=== PATIENT | female | born 1950 | race Caucasian/White ===

== ENCOUNTER → 2016-11-30 14:51 | Outpatient (CLI) | payer BC, MEDICARE | END | disposition home or self-care (01) | LOC: D.MAMMO 11-29 16:15 | DX: Z12.31 Encounter for screening mammogram for malignant neoplasm of breast (principal) ==

== ENCOUNTER 2017-08-13 12:19 | Inpatient (IN) | payer BC, MEDICARE ==
[~2017-08-13] VITALS: Ht 160 cm; Wt 83.2 kg
[2017-08-13 13:33] LABS: BASOPHILS 0.2 % (0-2); EOSINOPHILS 0 % (0-7); HEMATOCRIT 39.9 % (36.0-48.0); HEMOGLOBIN 13.2 g/dL (12-16); IMMATURE GRANULOCYTES 0.2 % (0-5); LYMPHOCYTES 6.6 % (15-50); MCH 29.7 pg (26.0-34.0); MCHC 33.1 g/dL (31.0-37.0); MCV 89.9 fL (80.0-100.0); MEAN PLATELET VOLUME 9.7 fL (7.4-10.4); MONOCYTES 5.3 % (2-11); NEUTROPHILS 87.7 % (40-80); PLATELET COUNT 256 10x3/uL (130-400); RBC 4.44 10x6/uL (4.00-5.40); RDW 14.1 % (11.5-14.5); WBC 9.7 10x3/uL (4.8-10.8)
[2017-08-13 13:47] LABS: ALBUMIN 3.5 g/dL (3.4-5.0); ALKALINE PHOSPHATASE 127 U/L (46-116); ALT (SGPT) 18 U/L (10-68); CALC OSMOLALITY 262 mosm/kg (275-300); CALCIUM 9.4 mg/dL (8.5-10.1); CARBON DIOXIDE 29.2 mmol/L (21.0-32.0); CHLORIDE - SERUM 93 mmol/L (98-107); CREATININE - SERUM 0.6 mg/dL (0.6-1.3); GLUCOSE 138 mg/dL (74-106); POTASSIUM - SERUM 4.4 mmol/L (3.5-5.1); PROTEIN - SERUM 7.3 g/dL (6.4-8.2); SODIUM 130 mmol/L (136-145); UREA NITROGEN 13 mg/dL (7-18); eGFR NON AFRICAN AMERICAN > 90 mL/min (90-120)
[2017-08-13 13:57] LABS: CREATINE KINASE 140 UL (21-215); PRO BNP 698 pg/mL (0-125); TROPONIN-I < 0.017 ng/mL (0.000-0.060)
--- NOTE | 2017-08-13 16:00 | NUR ---
PT TO ROOM 2225 FROM ER VIA STRETCHER.ASSESSMENT PER FLOW SHEET.PT ASSISTED TO BSC AND SHE BECAME VERY SHORT OF BREATH.02 SATS 96-99% ON BIPAP 45% 02. ORIENTATION TO ROOM.FAMILY AT BEDSIDE.CALL LIGHT IN REACH.
[2017-08-13 16:19] VITALS: BP 111/42; Ht 160 cm; Wt 83.2 kg
--- NOTE | 2017-08-13 18:33 | NUR ---
REMAINS WITHOUT NEEDS.FEELING A LITTLE BETTER.SON TO BRING LIST OF MEDS IN AM.PT UNABLE TO ANSWER DOSES AND FREQUENCY.CONT PLAN OF CARE
--- NOTE | 2017-08-13 19:00 | NUR ---
REPORT RECEIVED AND CARE OF PT ASSUMED. PT LYING IN SEMI YOUNG'S POSITION WITH EYES CLOSED. BIPAP IN USE AT 30% AND PT WITH UNLABORED BREATHING. WILL MONITOR CLOSELY FOR NEEDS.
[2017-08-13 20:00] VITALS: BP 121/62
--- NOTE | 2017-08-13 20:56 | NUR ---
HS MEDICATIONS GIVEN. BED ALARM ACTIVATED FOR SAFETY.
--- NOTE | 2017-08-13 22:38 | NUR ---
PT UP TO RESTROOM WITH METER CHANGES RECORDS CLERK ASSIST. POSITIONED BACK IN BED FOR COMFORT.
[2017-08-14] VITALS: BP 125/59
[2017-08-14] MEDS ORDERED: OMEPRAZOLE20 M1 PO (05:54)
[2017-08-14] MEDS ORDERED: COMBIVENT RESPIM4 GM INH (05:55)
[2017-08-14] MEDS ORDERED: BREO ELLIPTA 11 EACH INH (05:55)
[2017-08-14] MEDS ORDERED: CELEXA40 MG PO (05:55)
[2017-08-14] MEDS ORDERED: IPRAT-ALBUT 0.5-3 ML UPD (05:56)
[2017-08-14] MEDS ORDERED: TENORMIN25 MG PO (05:56)
[2017-08-14] MEDS ORDERED: ZOCOR40 MG PO (05:57)
[2017-08-14 06:29] VITALS: BP 134/59
--- NOTE | 2017-08-14 07:48 | NUR ---
AWAKE AND ALERT. ORIENTED X3. NO C/O AT THIS TIME. UP TO BSC WITH SBA. LUNGS HAVE INSPIRATORY WHEEZES THROUGHOUT LUNGS YEAGER. OCCASSIONAL DRY COUGH NOTED. SKIN IS INTACT WITHOUT REDNESS. SL TO RIGHT HAND PATENT WITHOUT REDNESS AT INSERTION SITE. VOIDED CLEAR YELLOW URINE WITHOUT DIFFICULTY. SKIN CARE PER SELF. DENIES NEEDS.
[2017-08-14 08:37] VITALS: BP 113/56
--- NOTE | 2017-08-14 10:55 | NUR ---
UP TO BR WITH FAMILY'S ASSISTANCE. O2 SAT 87% ON RA AFTERWARDS. O2 REPLACED AT 2L NC SATS UP TO 92%.
[2017-08-14 12:35] VITALS: BP 92/56
[2017-08-14 15:34] VITALS: BP 113/46
--- NOTE | 2017-08-14 16:30 | NUR ---
IV TO RIGHT WRIST REDDENED. RESITED TO LEFT FOREARM AFTER ONE ATTEMPT WITH 20G. OLD IV D/C WITH CATHETER INTACT.
--- NOTE | 2017-08-14 19:00 | NUR ---
REPORT RECEIVED AND CARE OF PT ASSUMED. PT LYING IN SEMI YOUNG'S POSITION WATCHING TV. IV IN LEFT FA SALINE LOCKED. TELEMETRY IN PLACE AND READING [address] AT THIS ASSESSMENT. EXPIRATORY WHEEZES AUSCULTATED IN ALL LUNG YEAGER. WILL MONITOR FOR NEEDS. CALL LIGHT WITHIN REACH.
[2017-08-14 20:00] VITALS: BP 98/45
--- NOTE | 2017-08-14 20:37 | NUR ---
HS MEDICATIONS GIVEN. PT DECLINES SHACK. WILL CONTINUE TO MONITOR FOR NEEDS.
[2017-08-15] VITALS: BP 109/50
[2017-08-15 04:00] VITALS: BP 154/67
[2017-08-15 05:16] LABS: BASOPHILS 0 % (0-2); EOSINOPHILS 0 % (0-7); HEMOGLOBIN 12.5 g/dL (12-16); IMMATURE GRANULOCYTES 0.2 % (0-5); LYMPHOCYTES 4.4 % (15-50); MCH 28.9 pg (26.0-34.0); MCHC 32.1 g/dL (31.0-37.0); MCV 90.3 fL (80.0-100.0); MEAN PLATELET VOLUME 10.1 fL (7.4-10.4); MONOCYTES 2.5 % (2-11); NEUTROPHILS 92.9 % (40-80); PLATELET COUNT 274 10x3/uL (130-400); RBC 4.32 10x6/uL (4.00-5.40); RDW 14.2 % (11.5-14.5)
[2017-08-15 05:49] LABS: ALBUMIN 3.3 g/dL (3.4-5.0); BILIRUBIN - TOTAL 0.42 mg/dL (0.2-1.3); CALCIUM 9.1 mg/dL (8.5-10.1); PROTEIN - SERUM 6.5 g/dL (6.4-8.2)
[2017-08-15 05:53] LABS: ANION GAP 8.7 mmol/L (8-16); CARBON DIOXIDE 36.9 mmol/L (21.0-32.0); CREATININE - SERUM 0.9 mg/dL (0.6-1.3); POTASSIUM - SERUM 3.6 mmol/L (3.5-5.1)
--- NOTE | 2017-08-15 07:44 | NUR ---
REC'D SITTING UP IN BED. ALERT AND ORIENTED X4. DENIED PAIN AT THIS TIME. DENIED NEEDS AT THIS TIME. NO DISTRESS NOTED. INSTRUCTED TO CALL IF NEEDED ANYTHING, VERBALIZED UNDERSTANDING. IS LEAVING TO XRAY. BED LOW, LOCKED, CALL LIGHT IN REACH. WILL CONT TO MONITOR.
[2017-08-15 09:26] VITALS: BP 110/51
--- NOTE | 2017-08-15 11:02 | NUR ---
RESTING QUIELTY IN BED. RESPIRATORY THERAPIST AT BEDSIDE. DENIES ANY NEEDS AT THIS TIME.
[2017-08-15 13:11] VITALS: BP 103/58
[2017-08-15 16:54] VITALS: BP 110/56
--- NOTE | 2017-08-15 19:15 | NUR ---
RECEIVED REPORT FROM DAYSDEFT NURSE.
[2017-08-15 20:00] VITALS: BP 95/59
--- NOTE | 2017-08-15 21:58 | NUR ---
SIT UP IN BED AND WATCH TV.
--- NOTE | 2017-08-16 01:05 | NUR ---
REST IN BED, EYE CLOSE, CALL LIGHT IN REACH.
--- NOTE | 2017-08-16 03:27 | NUR ---
ASSESSED, PT IS ASLEEP WITH O2 AT 2 LITERS AND CPAP OFF. EASY RESPIRATIONS AND NO DISTRESS NOTED. THE BED IS LOW, RAILS UP X'S 2 WITH THE CALL LIGHT AT HAND.
[2017-08-16 04:00] VITALS: BP 130/76
--- NOTE | 2017-08-16 05:30 | NUR ---
MORNING MED GIVEN ORDERED.
[2017-08-16] MEDS ORDERED: BROVANA15 MCG/2 M INH (06:50)
[2017-08-16] MEDS ORDERED: NICODERM C1 PATCH .1 TRANSDERM (06:50)
[2017-08-16] MEDS ORDERED: LEVAQUIN750 MG PO (06:53)
[2017-08-16] MEDS ORDERED: PREDNISONE10 MG (06:53)
[2017-08-16] MEDS ORDERED: MUCINEX1200 MG/BO PO (06:54)
--- NOTE | 2017-08-16 07:15 | NUR ---
REPORT RECEIVED FROM COUNTER ROLLER NURSE. CALL LIGHT IN REACH.
--- NOTE | 2017-08-16 08:34 | NUR ---
ASSESSMENT COMPLETED. AM MEDS ADMINISTERED. IV DC'D WITH TIP INTACT. WAITING ON DC PAPERWORK. CALL LIGHT IN REACH. WILL CONTINUE WITH PLAN OF CARE.
--- NOTE | 2017-08-16 09:20 | NUR ---
RXs CALLED IN TO [facility] IN [place] PER PATIENT REQUEST. DC INSTRUCTIONS EXPLAINED TO PATIENT. VERBALIZED UNDERSTANDING.
[2017-08-16 09:36] VITALS: BP 117/55
--- NOTE | 2017-08-16 10:18 | NUR ---
AWAITING RIDE FROM FAMILY TO DISCHARGE HOME. BALLISTIC EXPERT REMOVED AND RETURNED TO MONITOR STATION.
--- NOTE | 2017-08-16 11:44 | NUR ---
DC'D TO VEHICLE VIA WC WITH SON.
--- NOTE | 2017-08-18 14:06 | CN ---
PATIENT NAME:REYNOLD MEYER MEDICAL RECORD: [id number] : 48 LOCATION:D.MS [facility]25 ADMIT DATE: 08/13/17 ACCOUNT: [id number] CONSULTING PHYSICIAN: OBDULIA THORNE MD REFERRING PHYSICIAN: NASIR SINGH MD DATE OF CONSULTATION: 08/14/2017 CONSULT REQUESTING PHYSICIAN: Dr. Flavio Zhang. REASON FOR CONSULTATION: Acute exacerbation of chronic obstructive pulmonary disease and acute hypoxic respiratory failure. HISTORY OF PRESENT ILLNESS: Ms. Meyer is a 67-year-old female. The patient was sick for the last [address] Hyatt. She was given some Zithromax, but then probably she has some exposure to perfumes and she has shortness of breath. The patient came into the ER. She was put on BiPAP and she is a little bit better now. She is coughing with yellow-colored sputum production. She also hears herself wheezing. REVIEW OF SYSTEMS: As in history of present illness. PAST MEDICAL HISTORY: 1. Asthma. 2. Chronic obstructive pulmonary disease. 3. Hypertension. 4. Congestive heart failure. 5. Atrial fibrillation. PAST SURGICAL HISTORY: Nonsignificant. ALLERGIES: SHE IS ALLERGIC TO PENICILLIN, HYDROCODONE, IODINE. PRESENT MEDICATIONS: On [employer] was reviewed. PERSONAL AND SOCIAL HISTORY: The patient still continues to smoke 2 packs per day. She is a nondrinker. FAMILY HISTORY: Noncontributory. PHYSICAL EXAMINATION: GENERAL: Now, the patient is lying comfortable. She is not in acute distress. She is wearing nasal cannula oxygen. VITAL SIGNS: The blood pressure is 134/59, pulse is 89, respirations 22, temperature 97.9, SpO2 94% on 2 liters nasal cannula. HEENT: Conjunctivae pink, sclerae nonicteric. NECK: Supple, no JVD. CHEST: The chest excursion is minimal on both prolonged expiration with wheezing. HEART: Rhythm regular, normal sound, no murmur. ABDOMEN: Soft. Bowel sounds present. No hepatosplenomegaly. RECTAL: Deferred. EXTREMITIES: No cyanosis, no clubbing, no pedal edema. SKIN: Warm, normal turgor. CENTRAL NERVOUS SYSTEM: The patient is awake and alert. There is no obvious cranial nerve abnormality. The gait was not tested. CONSULT REPORT [id number] REYNOLD MEYER IMAGING: Chest radiograph, there is increased interstitial markings with possible small pleural effusion. OTHER LABORATORY DATA: CBC; the WBC is 9.7, hemoglobin 13.2, hematocrit is 39.9 and the platelet count 256. Chemistry; sodium 130, potassium 4.4, BUN is 13, creatinine 0.6. ABG; the pH is 7.31, pCO2 was 61.3%, the pO2 is 68, bicarbonate is 31.4. IMPRESSION: 1. Acute hypoxic respiratory failure. 2. Chronic hypercarbic respiratory failure with compensated metabolic alkalosis. 3. Acute exacerbation of chronic obstructive pulmonary disease. 4. Congestive heart failure with pulmonary edema, diastolic dysfunction. 5. Asthma. 6. Tobacco dependence syndrome. 7. Tracheobronchitis. RECOMMENDATION: 1. Continue Lasix. 2. Methylprednisolone IV, albuterol/ipratropium nebulizer, Brovana/budesonide nebulizer. Supplemental oxygen. Mucinex DM 2 tablets b.i.d. Start her on Singulair 10 mg daily. Follow up labs and chest radiograph. Check the cardiac echo. Dr. Zhang, thank you for involving me in the care of Ms. Meyer. TRANSINT:[id number] Voice Confirmation ID: [id number] DOCUMENT ID: [id number] OBDULIA THORNE MD at 1406 CC: NYDIA ZHANG DO [id number] DICTATION DATE: 08/14/17 1430 SUPERVISOR PYROTECHNIC LOADING: 08/14/172027 DIS IN 08/16/17 [id number] [place] [address]
== END 2017-08-16 11:44 | disposition home or self-care (01) | DRG 189 ==
LOC: D.ER 12:19 → D.MS 15:06
PROVIDERS: Emergency Medicine; Family Medicine; ADMIT Family Medicine
PROC: 5A09357 Assistance with Respiratory Ventilation, Less than 24 Consecutive Hours, Continuous Positive Airway Pressure (ICD-10-PCS; principal; 2017-08-13)
DX: J96.00 Acute respiratory failure, unspecified whether with hypoxia or hypercapnia (principal); J44.1 Chronic obstructive pulmonary disease with (acute) exacerbation; E87.3 Alkalosis; I50.9 Heart failure, unspecified; J96.12 Chronic respiratory failure with hypercapnia; F17.200 Nicotine dependence, unspecified, uncomplicated

== ENCOUNTER → 2017-12-06 15:39 | Outpatient (CLI) | payer BC, MEDICARE ==
[2017-08-13 16:19] VITALS: BMI 32.4
[~2017-12-06 15:39] MED LIST: BREO ELLIPTA 11 EACH INH; BROVANA15 MCG/2 M INH; CELEXA40 MG PO; COMBIVENT RESPIM4 GM INH; IPRAT-ALBUT 0.5-3 ML UPD; LEVAQUIN750 MG PO; MUCINEX1200 MG/BO PO; NICODERM C1 PATCH .1 TRANSDERM; OMEPRAZOLE20 M1 PO; PREDNISONE10 MG; TENORMIN25 MG PO; ZOCOR40 MG PO
== END | disposition home or self-care (01) ==
LOC: D.MAMMO 08:00
DX: Z12.31 Encounter for screening mammogram for malignant neoplasm of breast (principal)

== ENCOUNTER 2018-08-09 09:10 | Inpatient (IN) | payer BC, MEDICARE ==
[~2018-08-09] VITALS: Ht 160 cm; Wt 83.9 kg
--- NOTE | ~2018-08-09 | MORECARE ---
CASE MANAGEMENT DISCHARGE SUMMARY PATIENT: REYNOLD MEYER UNIT: [id number] ADM DATE: 08/09/18 AGE: 68 : 49 SEX: F ROOM/BED: D.2228 AUTHOR: ALEX,DOC PHYSICIAN: REFERRING PHYSICIAN: NASIR SINGH MD DATE OF SERVICE: 08/10/18 Discharge Plan Patient Name: REYNOLD MEYER Facility: [facility]:[place] : 1950 Planned Disposition: Home Anticipated Discharge Date: Discharge Date: Expected LOS: Initial Reviewer: [email or web address] Initial Review Date: 08/10/2018 Generated: 08/10/18 4:46 pm Comments DCP- Discharge Planning Updated by [email or web address]: Malissa Adams on 08/10/18 2:[address] Patient Name: REYNOLD MEYER Admission Status: ER Accout number: [id number] Admission Date: 08-09-2018 : 1950 Admission Diagnosis: Attending: NASIR SINGH Current LOS: 1 Anticipated DC Date: Planned Disposition: Home Primary Insurance: [employer] Discharge Planning Comments: CM met with patient to discuss discharge planning, her son is present in the room. She states she is independent with all ADL's and IADL's. 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 States she wears oxygen at 2L [place] at and [employer] in [place] is her DME company for that. She declines need for DME or Home health. States her son will take her home on discharge. CM will continue to follow and assist with discharge planning/needs. Advanced Quality Engineer: Malissa Adams DCPIA - Discharge Planning Initial Assessment Updated by [email or web address]: Malissa Adams on 08/10/18 3:33 pm * Is the patient Alert and Oriented? Yes * How many steps to enter\exit or inside your home? 5/0 * PCP Dr. Hyatt's * [facility]acy [facility] [place] ([facility]) * Preadmission Environment Home Alone * ADLs Independent * Equipment Oxygen * List name and contact numbers for known caregivers / representatives who currently or will assist patient after discharge: Kellee Hope - DTR - [phone] Nasir - son - unknown * Verbal permission to speak to the caregivers and representatives has been obtained from the patient. Yes * Community resources currently utilized None * Additional services required to return to the preadmission environment? No * Can the patient safely return to the preadmission environment? Yes * Has this patient been hospitalized within the prior 30 days at any hospital? No Last DP export: 08/10/18 2:37 Patient Name: REYNOLD MEYER Page [id number] at 1546 All edits/amendments must be made on the electronic document DICTATION DATE: 08/10/18 154 QUALITY ASSISTANT: MARIA ELENA 08/10/181545 RPT#: [id number] DC DATE: STATUS: ADM IN [facility] [address] [place] [address] END OF REPORT
--- NOTE | ~2018-08-09 | HP ---
PATIENT: REYNOLD MEYER MEDICAL RECORD: [id number] ACCOUNT: [id number] LOCATION:D.MS [facility]keon2228 : [birth year] ADMISSION DATE: 08/09/18 PCP: NASIR SINGH MD HISTORY AND PHYSICAL EXAMINATION DATE OF ADMISSION: 08/09/2018 CHIEF COMPLAINT: Shortness of breath. HISTORY OF PRESENT ILLNESS: The patient is a 68-year-old female with long-standing history of COPD. She reports that, over the past 2-3 weeks, she has had increasing shortness of breath and difficulty breathing. She has had mild swelling in her lower extremities. She has had minimal sputum production. The patient presented to the Emergency Room for evaluation. PAST MEDICAL HISTORY: Significant in that she has had carpal tunnel syndrome and cubital tunnel syndrome. She has had history of having atrial flutter and atrial fib. She has had ablation in the past. She has had history of asthma and chronic low back pain. She has had a lumbar surgery in 2009. She has had cholecystectomy, hysterectomy in 1973, and bilateral knee replacements. ALLERGIES: CEPHALEXIN, HYDROCODONE, IODINE, MEDROL, MUCINEX, PENICILLIN, AND SULFA. MEDICATIONS: Include albuterol solution 2.5 mg per 3 mL, 3 mL q. 4 hours p.r.n. shortness of breath; aspirin 81 mg once a day; atenolol 25 mg b.i.d.; Breo Ellipta 100 mcg/25 one puff daily; citalopram 40 mg once a day; omeprazole 20 mg once a day; Pulmicort Flexhaler 180 mcg two puffs daily; and simvastatin 40 mg once a day. FAMILY HISTORY: Father had heart disease, at 94; stroke prior to . Mother had dementia. SOCIAL HISTORY: The patient is a one and a half pack per day smoker most of her life, she started at age 15. She denies any ethanol use or abuse. The patient is educated through the 12th grade. 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 She is . REVIEW OF SYSTEMS: GENERAL: She denies any headache, seizure, or syncope. She denies change in visual or auditory acuity. PULMONARY: She has had increasing shortness of breath with wheezing. CARDIOVASCULAR: No chest pain, palpitation, PND, or orthopnea. GASTROINTESTINAL: No chronic nausea, vomiting, melena, or hematochezia. GENITOURINARY: No urgency, frequency, or dysuria. PHYSICAL EXAMINATION: VITAL SIGNS: In the Emergency Room, the patient's temperature was 99, her pulse was 78, her respirations were 18, her blood pressure was 124/73, and pulse ox was 83%. HEENT: Her head is normocephalic. No lesions. Ears; TMs are clear. Eyes; pupils are equal, round, and reactive to light. Her extraocular movements are intact. Her nasal cavity, oral cavity, and oropharynx are clear. NECK: Supple. There is no adenopathy. HEART: No murmurs, gallops, or rubs. HISTORY AND PHYSICAL [id number] REYNOLD MEYER LUNGS: She has diffuse end expiratory wheezes. ABDOMEN: Soft. Bowel sounds positive. No organomegaly. GENITAL AND RECTAL: Deferred. EXTREMITIES: The patient has no pretibial edema. LABORATORY DATA: The patient had ABGs on room air; pH 7.43, pCO2 of 48, pO2 was 45, and bicarb was 30.1. She had sodium that was 129, potassium 4.2, chloride 92, BUN was 8, and creatinine 0.6. Cardiac enzymes were unremarkable. ProBNP was slightly elevated at 728. White count was 17.7, hemoglobin 12.1, hematocrit 36.2, and platelets were 277. Borderline cardiomegaly was present. ASSESSMENT: Possible early congestive heart failure, COPD exacerbation, possible early pneumonia, and history of atrial fibrillation. PLAN: The patient is admitted. Pulmonary consultation will be obtained. The patient will be placed on Levaquin IV, also lactated Ringer's, updraft therapy, and Solu-Medrol. Sputum culture will be obtained. She will be given O2 supplementation as well as having updraft therapy. TRANSINT:[id number] Voice Confirmation ID: [id number] DOCUMENT ID: [id number] NASIR SINGH MD at 0736 CC: [id number] DICTATION DATE: 08/09/18 1800 SAFETY AIDE: 08/09/18 1859 ADM IN [facility] [address] [place] [address]
--- NOTE | ~2018-08-09 | MORECARE ---
CASE MANAGEMENT DISCHARGE SUMMARY PATIENT: REYNOLD MEYER UNIT: [id number] ADM DATE: 08/09/18 AGE: 68 : [birth year] SEX: F ROOM/BED: D.2228 AUTHOR: ALEX,DOC PHYSICIAN: REFERRING PHYSICIAN: NASIR SINGH MD DATE OF SERVICE: 08/14/18 Discharge Plan Patient Name: REYNOLD MEYER Facility: [facility]:[place] : 1950 Planned Disposition: Home Anticipated Discharge Date: Discharge Date: 08/13/2018 Expected LOS: 0 Initial Reviewer: [email or web address] Initial Review Date: 08/10/2018 Generated: 08/14/18 3:46 pm Comments DCP- Discharge Planning Updated by [email or web address]: Lisa Granado on 08/13/18 9:[address] CM RECEIVED ORDER TO CHECK FOR DME NEEDS FOR DISCHARGE PLANNING WITH POSSIBLE D/C TODAY. PATIENT HAS A STATIONARY HOME OXYGEN UNIT FOR NASAL O2 AT NIGHT. NO PORTABILITY. SHE HAS A NEBULIZER WHICH IS "OLD". IT IS OVER 5 YRS OLD. SHE DENIES ANY ADDITIONAL NEEDS SHE IS STILL WORKING. HAD BEEN SEEN BY BUSBOY INITIALLY 08/10/18. CM TO FOLLOW TO ASSIST IS APPROPRIATE. DCP- Discharge Planning Updated by [email or web address]: Malissa Adams on 08/10/18 2:[address] Patient Name: REYNOLD MEYER Admission Status: ER Accout number: [id number] Admission Date: 08-09-2018 : 1950 Admission Diagnosis: Attending: NASIR SINGH Current LOS: 1 Anticipated DC Date: Planned Disposition: Home Primary Insurance: [employer] O Discharge Planning Comments: CM met with patient to discuss discharge planning, her son is present in the room. She states she is independent with all ADL's and IADL's. 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 States she wears oxygen at 2L [place] at and [employer] in [place] is her DME company for that. She declines need for DME or Home health. States her son will take her home on discharge. CM will continue to follow and assist with discharge planning/needs. Auditing Coder: Malissa Adams DCPIA - Discharge Planning Initial Assessment Updated by [email or web address]: Malissa Adams on 08/10/18 3:33 pm * Is the patient Alert and Oriented? Yes * How many steps to enter\\exit or inside your home? 5/0 * PCP Dr. Hyatt's * [facility]acy [facility] [place] ([facility]) * Preadmission Environment Home Alone * ADLs Independent * Equipment Oxygen * List name and contact numbers for known caregivers / representatives who currently or will assist patient after discharge: Kellee Hope - DTR - [phone] Nasir - son - unknown * Verbal permission to speak to the caregivers and representatives has been obtained from the patient. Yes * Community resources currently utilized None * Additional services required to return to the preadmission environment? No * Can the patient safely return to the preadmission environment? Yes * Has this patient been hospitalized within the prior 30 days at any hospital? No Last DP export: 08/13/18 9:45 Patient Name: REYNOLD MEYER Page [id number] at 1446 All edits/amendments must be made on the electronic document DICTATION DATE: 08/14/18 1446 SOLE CUTTER: MARIA ELENA 08/14/18 1446 RPT#: [id number] DC DATE:08/13/18 STATUS: DIS IN [facility] [address] [place] [address] END OF REPORT
--- NOTE | ~2018-08-09 | MORECARE ---
CASE MANAGEMENT DISCHARGE SUMMARY PATIENT: REYNOLD MEYER UNIT: [id number] ADM DATE: 08/09/18 AGE: 68 : [birth year] SEX: F ROOM/BED: D.2228 AUTHOR: ROEL JOHNSON PHYSICIAN: REFERRING PHYSICIAN: NASIR SINGH MD DATE OF SERVICE: 08/10/18 Discharge Plan Patient Name: REYNOLD MEYER [facility] [facility] 1950 Planned Disposition: Home Anticipated Discharge Date: Discharge Date: Expected LOS: Initial Reviewer: [email or web address] Initial Review Date: 08/10/2018 Generated: 08/10/18 4:13 pm Patient Name: REYNOLD MEYER Page [id number] at 1513 All edits/amendments must be made on the electronic document DICTATION DATE: 08/10/181511 MINE WIRER: MARIA ELENA 08/10/181511 RPT#: [id number] DC DATE: STATUS: ADM IN [facility] [address] [place] [address] END OF REPORT
--- NOTE | ~2018-08-09 | DS ---
PATIENT:REYNOLD MEYER :[birth year] MEDICAL RECORD: [id number] DISCHARGE SUMMARY ADMISSION DATE: 08/09/18 DISCHARGE DATE: 08/13/18 DATE OF ADMISSION: 08/09/2018. DATE OF DISCHARGE: 08/13/2018. ADMISSION DIAGNOSES: Exacerbation of chronic obstructive pulmonary disease, history of congestive heart failure, history of atrial fibrillation. DISCHARGE DIAGNOSIS: Exacerbation of chronic obstructive pulmonary disease. HOSPITAL COURSE: The patient was admitted to the Emergency Room with progressive shortness of breath over the past 2-3 weeks, mild swelling in lower extremities, minimal sputum production. She has a long history of COPD, is on oxygen at night, long-term and present smoker. ABGs on admission: pH 7.43, pCO2 of 48, pO2 of 45, bicarbonate 30.1. Sodium low at 129. Cardiac enzymes unremarkable. ProBNP is slightly elevated at 728. White count was 17.7. The patient was admitted, pulmonology consulted. CT of the chest obtained, showed interstitial lung disease, possible early pneumonia. The patient gradually improved with IV fluids, empiric antibiotics, is ambulating on room air, is anxious to go home. She is discharged to home in significantly improved condition. PHYSICAL EXAMINATION: VITAL SIGNS ON DISCHARGE: Temperature 98.8, blood pressure 110/45, heart rate 70, respirations 18, O2 sats 96%. HEART: Regular rate and rhythm. LUNGS: Clear. Breathing is nonlabored. ABDOMEN: Soft, nontender. Bowel sounds all 4 quadrants. EXTREMITIES: Present times 4. NEUROLOGIC: Intact. SKIN: Warm and dry. No rash. Family is present. The patient is again counseled on smoking cessation, has nicotine patches at home. She is discharged home in significantly improved condition. Discussed case with her media traffic manager, Dr. Acosta who agrees with discharge. Will follow up as outpatient and follow up with Dr. Copeland in 10-14 days. MEDICATIONS: Per med rec. FOLLOWUP: The patient will discuss pulmonary rehab with Dr. Copeland with her follow up. See chart for further details. TRANSINT:[id number] Voice Confirmation ID: [id number] DOCUMENT ID: [id number] DISCHARGE SUMMARY REPORT [id number] REYNOLD MEYER JATIN BINGHAM DO at 1023 CC: [id number] DICTATION DATE: 08/13/18 1304 MONOTYPIST: 08/14/18 0755 DIS IN 08/13/18 [facility] [address] [place] [address]
--- NOTE | ~2018-08-09 | MORECARE ---
CASE MANAGEMENT DISCHARGE SUMMARY PATIENT: REYNOLD MEYER UNIT: [id number] ADM DATE: 08/09/18 AGE: 68 : 49 SEX: F ROOM/BED: D.2228 AUTHOR: ALEX,DOC PHYSICIAN: REFERRING PHYSICIAN: NASIR SINGH MD DATE OF SERVICE: 08/13/18 Discharge Plan Patient Name: REYNOLD MEYER Facility: [facility]:[place] : 1950 Planned Disposition: Home Anticipated Discharge Date: Discharge Date: Expected LOS: Initial Reviewer: [email or web address] Initial Review Date: 08/10/2018 Generated: 08/13/18 11:45 am Comments DCP- Discharge Planning Updated by [email or web address]: Lisa Granado on 08/13/18 9:[address] CM RECEIVED ORDER TO CHECK FOR DME NEEDS FOR DISCHARGE PLANNING WITH POSSIBLE D/C TODAY. PATIENT HAS A STATIONARY HOME OXYGEN UNIT FOR NASAL O2 AT NIGHT. NO PORTABILITY. SHE HAS A NEBULIZER WHICH IS "OLD". IT IS OVER 5 YRS OLD. SHE DENIES ANY ADDITIONAL NEEDS SHE IS STILL WORKING. HAD BEEN SEEN BY LOCKER ATTENDANT INITIALLY 08/10/18. CM TO FOLLOW TO ASSIST IS APPROPRIATE. DCP- Discharge Planning Updated by [id number]: Malissa Adams on 08/10/18 2:[address] Patient Name: REYNOLD MEYER Admission Status: ER Accout number: [id number] Admission Date: 08-09-2018 : 1950 Admission Diagnosis: Attending: NASIR SINGH Current LOS: 1 Anticipated DC Date: Planned Disposition: Home Primary Insurance: [employer] Discharge Planning Comments: CM met with patient to discuss discharge planning, her son is present in the room. She states she is independent with all ADL's and IADL's. 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 States she wears oxygen at 2L [place] at HS and [employer] in [place] is her DME company for that. She declines need for DME or Home health. States her son will take her home on discharge. CM will continue to follow and assist with discharge planning/needs. Grease Worker: Malissa Adams DCPIA - Discharge Planning Initial Assessment Updated by [email or web address]: Malissa Adams on 08/10/18 3:33 pm * Is the patient Alert and Oriented? Yes * How many steps to enter\\exit or inside your home? 5/0 * PCP Dr. Hyatt's * [facility]acy [facility] [place] ([facility]) * Preadmission Environment Home Alone * ADLs Independent * Equipment Oxygen * List name and contact numbers for known caregivers / representatives who currently or will assist patient after discharge: Kellee Hope - DTR - [phone] Nasir - son - unknown * Verbal permission to speak to the caregivers and representatives has been obtained from the patient. Yes * Community resources currently utilized None * Additional services required to return to the preadmission environment? No * Can the patient safely return to the preadmission environment? Yes * Has this patient been hospitalized within the prior 30 days at any hospital? No Last DP export: 08/10/18 2:46 Patient Name: REYNOLD MEYER Page [phone] at 1045 All edits/amendments must be made on the electronic document DICTATION DATE: 08/13/18 1045 ACCOUNTING MANAGER CONTROLLER: MARIA ELENA 08/13/18 1045 RPT#: [id number] DC DATE: STATUS: ADM IN [facility] [address] [place] [address] END OF REPORT
--- NOTE | ~2018-08-09 | MORECARE ---
CASE MANAGEMENT DISCHARGE SUMMARY PATIENT: REYNOLD MEYER UNIT: [id number] ADM DATE: 08/09/18 AGE: 68 : 48 SEX: F ROOM/BED: D.2228 AUTHOR: ROEL JOHNSON PHYSICIAN: REFERRING PHYSICIAN: NASIR SINGH MD DATE OF SERVICE: 08/10/18 Discharge Plan Patient Name: REYNOLD MEYER [facility] [facility] 1950 Planned Disposition: Home Anticipated Discharge Date: Discharge Date: Expected LOS: Initial Reviewer: [email or web address] Initial Review Date: 08/10/2018 Generated: 08/10/18 4:37 pm DCPIA - Discharge Planning Initial Assessment Updated by [email or web address]: Malissa Adams on 08/10/18 3:33 pm * Is the patient Alert and Oriented? Yes * How many steps to enter\exit or inside your home? 5/0 * PCP [facility] * [facility] [place] ([facility]) * Preadmission Environment Home Alone * ADLs Independent * Equipment Oxygen * List name and contact numbers for known caregivers / representatives who currently or will assist patient after discharge: Kellee Jayy - DTR - [phone] Nasir - son - unknown * Verbal permission to speak to the caregivers and representatives has been obtained from the patient. Yes * Community resources currently utilized None * Additional services required to return to the preadmission environment? No * Can the patient safely return to the preadmission environment? Yes * Has this patient been hospitalized within the prior 30 days at any hospital? No Last DP export: 08/10/18 2:13 Patient Name: REYNOLD MEYER Page [id number] at 1537 All edits/amendments must be made on the electronic document DICTATION DATE: 08/10/181536 CHERRY CUTTER: MARIA ELENA 08/10/181536 RPT#: [id number] DC DATE: STATUS: ADM IN [facility] [address] [place] [address] END OF REPORT
[2018-08-09 10:05] LABS: APTT 27.4 SECONDS (22.8-39.4); INR 1.05 (0.85-1.17); PROTIME 13.2 SECONDS (11.6-15.0)
[2018-08-09 10:07] LABS: BASOPHILS 0.1 % (0-2); EOSINOPHILS 0.2 % (0-7); HEMATOCRIT 36.2 % (36.0-48.0); HEMOGLOBIN 12.1 g/dL (12-16); IMMATURE GRANULOCYTES 0.3 % (0-5); LYMPHOCYTES 2.8 % (15-50); MCH 29.9 pg (26.0-34.0); MCHC 33.4 g/dL (31.0-37.0); MCV 89.4 fL (80.0-100.0); MEAN PLATELET VOLUME 9.4 fL (7.4-10.4); MONOCYTES 5.1 % (2-11); NEUTROPHILS 91.5 % (40-80); PLATELET COUNT 277 10x3/uL (130-400); RBC 4.05 10x6/uL (4.00-5.40); WBC 17.7 10x3/uL (4.8-10.8)
[2018-08-09 10:08] LABS: ALBUMIN 3.3 g/dL (3.4-5.0); ALKALINE PHOSPHATASE 93 U/L (46-116); ALT (SGPT) 14 U/L (10-68); BILIRUBIN - TOTAL 0.62 mg/dL (0.2-1.3); CALC OSMOLALITY 258 mosm/kg (275-300); CALCIUM 8.7 mg/dL (8.5-10.1); CARBON DIOXIDE 30.8 mmol/L (21.0-32.0); CHLORIDE - SERUM 92 mmol/L (98-107); CREATININE - SERUM 0.6 mg/dL (0.6-1.3); GLUCOSE 128 mg/dL (74-106); POTASSIUM - SERUM 4.2 mmol/L (3.5-5.1); PROTEIN - SERUM 6.6 g/dL (6.4-8.2); SODIUM 129 mmol/L (136-145); UREA NITROGEN 8 mg/dL (7-18); eGFR NON AFRICAN AMERICAN > 90 mL/min (90-120)
[2018-08-09 10:20] LABS: CKMB 2.4 U/L (0.0-3.6); CREATINE KINASE 88 UL (21-215); PRO BNP 728 pg/mL (0-125); TROPONIN-I < 0.017 ng/mL (0.000-0.060)
[2018-08-09 16:44] VITALS: BP 130/57; BMI 32.8
[2018-08-09 20:54] VITALS: BP 121/57
[2018-08-10 01:05] VITALS: BP 113/69
[2018-08-10 04:35] LABS: BASOPHILS 0 % (0-2); EOSINOPHILS 0 % (0-7); HEMATOCRIT 34.4 % (36.0-48.0); HEMOGLOBIN 11.4 g/dL (12-16); IMMATURE GRANULOCYTES 0.2 % (0-5); LYMPHOCYTES 2.3 % (15-50); MCH 29.8 pg (26.0-34.0); MCHC 33.1 g/dL (31.0-37.0); MCV 89.8 fL (80.0-100.0); MEAN PLATELET VOLUME 9.9 fL (7.4-10.4); MONOCYTES 2.1 % (2-11); NEUTROPHILS 95.4 % (40-80); PLATELET COUNT 244 10x3/uL (130-400); RBC 3.83 10x6/uL (4.00-5.40)
[2018-08-10 04:55] LABS: ALBUMIN 2.7 g/dL (3.4-5.0); ALKALINE PHOSPHATASE 72 U/L (46-116); ALT (SGPT) 16 U/L (10-68); CALC OSMOLALITY 265 mosm/kg (275-300); CALCIUM 8.9 mg/dL (8.5-10.1); CARBON DIOXIDE 33.6 mmol/L (21.0-32.0); CHLORIDE - SERUM 94 mmol/L (98-107); CREATININE - SERUM 0.5 mg/dL (0.6-1.3); GLUCOSE 143 mg/dL (74-106); MAGNESIUM - SERUM 1.9 mg/dL (1.8-2.4); PHOSPHOROUS 3.3 mg/dL (2.5-4.9); POTASSIUM - SERUM 4.1 mmol/L (3.5-5.1); SODIUM 133 mmol/L (136-145); UREA NITROGEN 8 mg/dL (7-18); eGFR NON AFRICAN AMERICAN > 90 mL/min (90-120)
[2018-08-10 06:29] VITALS: BP 100/49
[2018-08-10 08:43] VITALS: BP 118/50
[2018-08-10 12:10] VITALS: BP 107/46
[2018-08-10 13:26] VITALS: Ht 160 cm; Wt 83.9 kg
[2018-08-10 16:12] VITALS: BP 114/44
[2018-08-10 20:00] VITALS: BP 110/44
[2018-08-11 00:43] VITALS: BP 113/48
[2018-08-11 04:00] VITALS: BP 118/50
[2018-08-11 04:25] LABS: BASOPHILS 0 % (0-2); EOSINOPHILS 0 % (0-7); HEMATOCRIT 31.7 % (36.0-48.0); HEMOGLOBIN 10.3 g/dL (12-16); IMMATURE GRANULOCYTES 0.3 % (0-5); LYMPHOCYTES 2.8 % (15-50); MCH 29.9 pg (26.0-34.0); MCHC 32.5 g/dL (31.0-37.0); MCV 91.9 fL (80.0-100.0); MEAN PLATELET VOLUME 9.9 fL (7.4-10.4); MONOCYTES 2.1 % (2-11); NEUTROPHILS 94.8 % (40-80); PLATELET COUNT 237 10x3/uL (130-400); RBC 3.45 10x6/uL (4.00-5.40); RDW 14.1 % (11.5-14.5); WBC 15.6 10x3/uL (4.8-10.8)
[2018-08-11 04:32] LABS: CALCIUM 8.6 mg/dL (8.5-10.1); CARBON DIOXIDE 33.7 mmol/L (21.0-32.0); CHLORIDE - SERUM 95 mmol/L (98-107); GLUCOSE 159 mg/dL (74-106); POTASSIUM - SERUM 4.2 mmol/L (3.5-5.1); SODIUM 132 mmol/L (136-145); eGFR NON AFRICAN AMERICAN 88 mL/min (90-120)
[2018-08-11 04:38] LABS: CALC OSMOLALITY 267 mosm/kg (275-300); CREATININE - SERUM 0.7 mg/dL (0.6-1.3); UREA NITROGEN 12 mg/dL (7-18)
[2018-08-11 08:34] VITALS: BP 124/61
[2018-08-11 12:34] VITALS: BP 117/47
[2018-08-11 16:34] VITALS: BP 130/64
[2018-08-11 21:33] VITALS: BP 131/57
[2018-08-12 01:10] VITALS: BP 124/47
[2018-08-12 04:40] VITALS: BP 138/60
[2018-08-12 06:15] LABS: BASOPHILS 0.1 % (0-2); EOSINOPHILS 0 % (0-7); HEMATOCRIT 32.8 % (36.0-48.0); HEMOGLOBIN 10.4 g/dL (12-16); IMMATURE GRANULOCYTES 0.2 % (0-5); LYMPHOCYTES 3.6 % (15-50); MCH 29.5 pg (26.0-34.0); MCHC 31.7 g/dL (31.0-37.0); MCV 92.9 fL (80.0-100.0); MEAN PLATELET VOLUME 10.2 fL (7.4-10.4); MONOCYTES 3.2 % (2-11); NEUTROPHILS 92.9 % (40-80); PLATELET COUNT 261 10x3/uL (130-400); RBC 3.53 10x6/uL (4.00-5.40)
[2018-08-12 06:19] LABS: WBC 11.4 10x3/uL (4.8-10.8)
[2018-08-12 06:36] LABS: CALC OSMOLALITY 267 mosm/kg (275-300); CALCIUM 8.4 mg/dL (8.5-10.1); CARBON DIOXIDE 35.4 mmol/L (21.0-32.0); CHLORIDE - SERUM 95 mmol/L (98-107); CREATININE - SERUM 0.6 mg/dL (0.6-1.3); GLUCOSE 157 mg/dL (74-106); PHOSPHOROUS 3.2 mg/dL (2.5-4.9); POTASSIUM - SERUM 3.9 mmol/L (3.5-5.1); SODIUM 133 mmol/L (136-145); UREA NITROGEN 9 mg/dL (7-18); eGFR NON AFRICAN AMERICAN > 90 mL/min (90-120)
[2018-08-12 07:00] VITALS: BP 109/62
[2018-08-12 12:21] VITALS: BP 123/54
[2018-08-12 16:12] VITALS: BP 129/59
[2018-08-12 20:00] VITALS: BP 132/57
[2018-08-13] VITALS: BP 128/59
[2018-08-13 04:00] VITALS: BP 129/58
[2018-08-13 09:04] VITALS: BP 110/45
[2018-08-13 12:30] VITALS: BP 127/44
[2018-08-13] MEDS ORDERED: SINGULAIR10 MG PO (12:56)
[2018-08-13] MEDS ORDERED: DALIRESP500 MCG PO (12:57)
[2018-08-13] MEDS ORDERED: PREDNISONE20 MG PO (12:58)
[2018-08-13] MEDS ORDERED: SYMBICORT 16010.2 GM INH (16:17)
[2018-08-13] MEDS ORDERED: FLUTICASONE PRO16 GM NASAL (16:22)
[2018-08-13 17:15] VITALS: BP 128/47
[2018-08-14 03:05] LABS: IMMUNOGLOBULIN E 7 IU/mL (0-100)
== END 2018-08-13 17:38 | disposition home or self-care (01) | DRG 193 ==
LOC: D.ER 09:10 → D.EDHOLD 13:41 → D.MS 13:41
PROVIDERS: Family Medicine; Internal Medicine Pulmonary Disease
DX: J18.9 Pneumonia, unspecified organism (principal); J96.01 Acute respiratory failure with hypoxia; J44.1 Chronic obstructive pulmonary disease with (acute) exacerbation; E87.1 Hypo-osmolality and hyponatremia

== ENCOUNTER → 2018-09-22 10:00 | Outpatient (CLI) | payer BC, MEDICARE ==
[2018-08-10 13:26] VITALS: BMI 32.7
[~2018-09-22 10:00] MED LIST changes: +DALIRESP500 MCG PO; +FLUTICASONE PRO16 GM NASAL; +PREDNISONE20 MG PO; +SINGULAIR10 MG PO; +SYMBICORT 16010.2 GM INH
== END | disposition home or self-care (01) ==
LOC: D.RT 10:00
DX: R06.02 Shortness of breath (principal)

== ENCOUNTER → 2019-08-24 09:37 | Outpatient (CLI) | payer OTHER, MEDICARE ==
[2018-08-10 13:26] VITALS: BMI 32.7
== END | disposition home or self-care (01) ==
LOC: D.CT 09:37
PROVIDERS: ATTEND Internal Medicine Pulmonary Disease
DX: R91.8 Other nonspecific abnormal finding of lung field (principal)

== ENCOUNTER 2019-09-10 10:00 | Outpatient (CLI) | payer OTHER, MEDICARE ==
[2018-08-10 13:26] VITALS: BMI 32.7
== END 2019-09-10 10:30 | disposition home or self-care (01) ==
LOC: D.MAMMO 10:00
PROVIDERS: ATTEND Family Medicine
DX: Z12.31 Encounter for screening mammogram for malignant neoplasm of breast (principal)

== ENCOUNTER → 2020-02-06 13:30 | Outpatient (CLI) | payer OTHER, MEDICARE ==
[2018-08-10 13:26] VITALS: BMI 32.7
== END | disposition home or self-care (01) ==
LOC: D.LABREF 13:30
PROVIDERS: ATTEND Internal Medicine Pulmonary Disease
DX: Z11.59 Encounter for screening for other viral diseases (principal)

== ENCOUNTER → 2020-02-07 13:37 | Outpatient (CLI) | payer OTHER, MEDICARE ==
[2018-08-10 13:26] VITALS: BMI 32.7
== END | disposition home or self-care (01) ==
LOC: D.RT 13:37
PROVIDERS: ATTEND Internal Medicine Pulmonary Disease
DX: J44.9 Chronic obstructive pulmonary disease, unspecified (principal)

== ENCOUNTER → 2020-11-25 09:01 | Outpatient (CLI) | payer MEDICARE ==
[2018-08-10 13:26] VITALS: BMI 32.7
== END | disposition home or self-care (01) ==
LOC: D.HCCECHO 09:01
PROVIDERS: ATTEND Internal Medicine Cardiovascular Disease
DX: I34.0 Nonrheumatic mitral (valve) insufficiency (principal)

== ENCOUNTER 2021-02-04 14:45 | Outpatient (CLI) | payer MEDICARE ==
[2018-08-10 13:26] VITALS: BMI 32.7
== END 2021-02-04 23:59 | disposition home or self-care (01) ==
LOC: D.MAMMO 14:45
PROVIDERS: ATTEND Family Medicine
DX: Z12.31 Encounter for screening mammogram for malignant neoplasm of breast (principal)